=== PATIENT | male | born 1970 | race African-American/Black ===

== ENCOUNTER 2019-12-27 03:08 | Emergency (ER) | payer MEDICAID ==
[~2019-12-27] VITALS: Ht 182.9 cm; Wt 88.5 kg
[2019-12-27 03:15] VITALS: BP 134/78
--- NOTE | 2019-12-27 03:15 | NUR ---
ED Nurse Note: walked in to ed c/o neck stiffness/pain onset 2-3 wks that gets worse with movement. denies any trauma or injury. pt states he woke up one day with neck pain. vss, nad, aaox4, ambulatory, ermd at bedside
--- NOTE | 2019-12-27 03:20 | NUR ---
ED Nurse Note: blood drawn and sent to lab
[2019-12-27] MEDS ORDERED: cefTRIAXone 1 GM in NS 55 ML IVPB ONE (03:45)
--- NOTE | 2019-12-27 03:55 | Emergency Room Report ---
History of Present Illness General Chief Complaint: Neck Pain Source: Patient Present Illness HPI Patient is a 48-year-old male presents for increased neck pain gradual onset over the past few weeks. Patient had recent noticed lymph node to his right inguinal area. Reports having increased pain to his upper back. Had recently been started on acyclovir after visit to urgent care showed and recent penile l esion noted. 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 Patient History Past Medical History: see triage record Reviewed Nursing Documentation: PMH: Agreed; PSxH: Agreed Nursing Documentation-PMH Past Medical History: No Stated History Review of Systems All Other Systems: negative except mentioned in HPI Physical Exam Vital Signs Date Time Temp Pulse Resp B/P (MAP) Pulse Ox O2 Delivery O2 Flow Rate FiO2 12/27/19 03:14 98.4 92 18 123/77 (92) 99 Room Air Sp02 EP Interpretation: reviewed, normal General Appearance: normal inspection, well appearing, no apparent distress, alert, GCS 15 Head: atraumatic ENT: normal ENT inspection, hearing grossly normal, normal voice Neck: normal inspection, full range of motion, supple, no bony tend Respiratory: normal inspection, lungs clear, normal breath sounds, no respiratory distress, no retraction, no wheezing Cardiovascular #1: regular rate, rhythm, no edema Gastrointestinal: normal inspection, normal bowel sounds, non tender, soft, no guarding, no hernia Genitourinary: no CVA tenderness, other - Circumcised male, no penile ulcers Musculoskeletal: normal inspection, back normal, normal range of motion Neurologic: alert, motor strength/tone normal, beauty specialist III-XII nml as tested, oriented x3, responsive, speech normal, normal inspection Psychiatric: normal inspection, judgement/insight normal, mood/affect normal Medical Decision Making Diagnostic Impression: Primary Impression: LAD (lymphadenopathy), inguinal Additional Impression: Neck pain ER Course Patient presented for neck pain. Differential diagnosis include was not limited to pharyngitis, torticollis, cervical disc herniation, among others. Because of complexity of patient's case laboratory tests and imaging studies were ordered. Patient was noted to have some increased neck stiffness. He had recent increased right-sided inguinal pain and adenopathy. Apparently had increased stiffness to his neck. Patient denies any fever but does report having some mild cough. Patient was advised outpatient coronavirus testing and to self isolate. He was also advised to follow-up with his primary care physician for recheck. CT imaging showed no evidence of acute fracture or malalignment. Degenerative changes were noted. This medical record is generated with [employer] thread spinner software. There may be some thread spinner discrepancies related to use of this software Last Vital Signs Date Time Temp Pulse Resp B/P (MAP) Pulse Ox O2 Delivery O2 Flow Rate FiO2 12/27/19 03:14 98.4 92 18 123/77 (92) 99 Room Air Status: improved Disposition: HOME, SELF-CARE Condition: Stable Scripts Ibuprofen* (MOTRIN*) 600 Mg Tablet 600 MG ORAL Q8H PRN for FOR PAIN, #30 TAB 0 Refills Prov: Olaf Sinclair MD 12/27/19 Doxycycline Hyclate* (VIBRAMYCIN*) 100 Mg Capsule 100 MG ORAL EVERY 12 HOURS, #14 CAP 0 Refills Prov: Olaf Sinclair MD 12/27/19 Referrals: NOT CHOSEN [facility]/,REFERRING (PCP) Olaf Sinclair MD Dec 27, 2019 03:55
[2019-12-27 04:28] LABS: BASOPHILS % (AUTO) 1.3 % (0.0-2.0); EOSINOPHILS % (AUTO) 1.7 % (0.0-3.0); HEMATOCRIT 40.1 % (42.0-52.0); HEMOGLOBIN 12.1 G/DL (14.2-18.0); LYMPHOCYTES % (AUTO) 30.7 % (20.0-45.0); MEAN CORPUSCULAR VOLUME 78 FL (80-99); MONOCYTES % (AUTO) 13.7 % (1.0-10.0); NEUTROPHILS % (AUTO) 52.6 % (45.0-75.0); PLATELET COUNT 315 K/UL (150-450); RED BLOOD COUNT 5.12 M/UL (4.70-6.10); RED CELL DISTRIBUTION WIDTH 12.9 % (11.6-14.8); WHITE BLOOD COUNT 6.4 K/UL (4.8-10.8)
[2019-12-27] MEDS ORDERED: Omnipaque-300 100ml vial INJ ONE (04:30)
[2019-12-27 04:40] LABS: INR 1.1 (0.9-1.1)
[2019-12-27 04:42] LABS: ANION GAP 4 mmol/L (5-15); BLOOD UREA NITROGEN 11 mg/dL (7-18); CALCIUM 9.3 MG/DL (8.5-10.1); CARBON DIOXIDE 31 MMOL/L (21-32); CHLORIDE 100 MMOL/L (98-107); CREATININE 1.4 MG/DL (0.55-1.30); SODIUM 135 MMOL/L (136-145)
[2019-12-27 04:47] LABS: ALANINE AMINOTRANSFERASE 22 U/L (12-78); ALBUMIN 3.7 G/DL (3.4-5.0); ALBUMIN/GLOBULIN RATIO 0.7 (1.0-2.7); ALKALINE PHOSPHATASE 86 U/L (46-116); ASPARTATE AMINO TRANSFERASE 14 U/L (15-37); BILIRUBIN,TOTAL 0.6 MG/DL (0.2-1.0)
[2019-12-27] MEDS ORDERED: Ketorolac 30mg Inj IV ONE (05:30)
[2019-12-27] MEDS ORDERED: VIBRAMYCIN100 MG ORAL (06:00)
[2019-12-27] MEDS ORDERED: IBUPROFEN600 M1 ORAL (06:00)
--- NOTE | 2019-12-27 06:24 | Diagnostic Imaging Report ---
EXAM: CT Neck With Intravenous Contrast CLINICAL HISTORY: PAIN TECHNIQUE: Axial computed tomography images of the neck with intravenous contrast. CTDI is 14.6 mGy and DLP is 433.1 mGy-cm. One or more of the following dose reduction techniques were used: automated exposure control, adjustment of the mA and/or kV according to patient size, use of iterative reconstruction technique. COMPARISON: No relevant prior studies available. FINDINGS: Oropharynx: Unremarkable. No significant tonsillar enlargement. No peritonsillar abscess. Hypopharynx: Unremarkable. Larynx: Unremarkable. Normal epiglottis. Trachea: Unremarkable. Retropharyngeal space: Unremarkable. Submandibular/parotid glands: Unremarkable. Glands are normal in size. Thyroid: Unremarkable. No enlarged or calcified nodules. Bones/joints: Degenerative disc disease most pronounced at C6-7 where it is moderate. No acute fracture. Soft tissues: Unremarkable. Vasculature: No acute findings. Lymph nodes: Unremarkable. No lymphadenopathy. Lung apices: Unremarkable as visualized. IMPRESSION: No acute findings in the neck.
[2019-12-27 06:25] VITALS: BP 133/65
--- NOTE | 2019-12-27 06:25 | NUR ---
ER DISCHARGE NOTE: Patient is cleared to be discharged per ERMD, pt is aox4, on room air, with stable vital signs. pt was given dc and prescription instructions, pt was able to verbalize understanding, pt id band and iv site removed without complications. pt is able to ambulate with steady gait. pt took all belongings.
== END 2019-12-27 06:25 | disposition home or self-care (01) ==
LOC: EMR 03:28
DX: R59.0 Localized enlarged lymph nodes (principal); M54.2 Cervicalgia
CPT/HCPCS: 36415; 70491; 80053; 84484; 85025; 85610; 85730; 96374; J0696; J1885; Q9967; Z7502; 99284

== ENCOUNTER 2020-03-11 00:17 | Emergency (ER) | payer MEDICAID, OTHER ==
[~2020-03-11] VITALS: Ht 180.3 cm; Wt 90.7 kg
[~2020-03-11 00:17] MED LIST: IBUPROFEN600 M1 ORAL; VIBRAMYCIN100 MG ORAL
--- NOTE | 2020-03-11 00:20 | NUR ---
Patient came in the ED with complaints of testicular pain and bloody urine for the past three days.
[2020-03-11 00:38] LABS: BILIRUBIN, URINE NEGATIVE (NEGATIVE); GLUCOSE, URINE (UA) NEGATIVE (NEGATIVE); KETONES,URINE 1+ (NEGATIVE); LEUKOCYTE ESTERASE ,URINE 2+ (NEGATIVE); NITRITE,URINE NEGATIVE (NEGATIVE); PH,URINE 6 (4.5-8.0); PROTEIN,URINE 1+ (NEGATIVE); UROBILINOGEN,URINE 4 MG/DL (0.0-1.0)
[2020-03-11 00:43] VITALS: BP 122/74
--- NOTE | 2020-03-11 00:43 | Emergency Room Report ---
History of Present Illness General Chief Complaint: Male Urogenital Problems Source: Patient Present Illness HPI 49-year-old male here with hematuria and right testicular pain. 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 Patient says that he has not been sexually active over the past several weeks. Says that several weeks ago he went to an STD clinic where he was checked for "all the STDs" and was positive for syphilis. Tested negative at that time for HIV, gonorrhea, chlamydia. Has not been sexually active since that test was performed. Says that over the past week has noticed small amount of hematuria and right testicular pain. No back pain or abdominal pain. No fevers, chills, chest pain, palpitation, shortness of breath, nausea, vomiting, diarrhea, dysuria, penile discharge. Says he has had some moderate urinary frequency during this time as well. 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 Nursing Documentation-[facility] Past Medical History: No Stated History Review of Systems All Other Systems: negative except mentioned in HPI Physical Exam Vital Signs Date Time Temp Pulse Resp B/P (MAP) Pulse Ox O2 Delivery O2 Flow Rate FiO2 03/11/20 00:19 98.8 100 18 122/74 (90) 100 Room Air Sp02 EP Interpretation: reviewed, normal General Appearance: no apparent distress, alert, non-toxic Head: normocephalic, atraumatic Eyes: bilateral eye normal inspection, bilateral eye PERRL ENT: hearing grossly normal, normal pharynx, no angioedema, normal voice Neck: full range of motion, supple/symm/no masses Respiratory: chest non-tender, lungs clear, normal breath sounds, speaking full sentences Cardiovascular #1: regular rate, rhythm, no edema Cardiovascular #2: 2+ carotid (R), 2+ carotid (L), 2+ radial (R), 2+ radial (L), 2+ dorsalis pedis (R), 2+ dorsalis pedis (L) Gastrointestinal: normal bowel sounds, non tender, soft, non-distended, no guarding, no rebound Rectal: deferred Genitourinary: normal inspection, no CVA tenderness, penis normal Musculoskeletal: back normal, normal range of motion, gait/station normal, non-tender Neurologic: alert, motor strength/tone normal, oriented x3, sensory intact, responsive, speech normal Psychiatric: judgement/insight normal, memory normal, mood/affect normal, no suicidal/homicidal ideation Lymphatic: no adenopathy Medical Decision Making Diagnostic Impression: Primary Impression: Orchitis ER Course Laboratory Tests Test 03/11/20 00:30 03/11/20 01:15 Urine Color Yellow Urine Appearance Slightly cloudy Urine pH 6 (4.5-8.0) Urine Specific [place] 1.020 (1.005-1.035) Urine Protein 1+ (NEGATIVE) H Urine Glucose (UA) Negative (NEGATIVE) Urine Ketones 1+ (NEGATIVE) H Urine Blood 5+ (NEGATIVE) H Urine Nitrite Negative (NEGATIVE) Urine Bilirubin Negative (NEGATIVE) Urine Urobilinogen 4 MG/DL (0.0-1.0) H Urine Leukocyte Esterase 2+ (NEGATIVE) H Urine RBC 20-30 /HPF (0 - 0) H Urine WBC 20-30 /HPF (0 - 0) H Urine Squamous Epithelial Cells None /LPF (NONE/OCC) Urine Bacteria Few /HPF (NONE) White Blood Count 6.3 K/UL (4.8-10.8) Red Blood Count 5.98 M/UL (4.70-6.10) Hemoglobin 13.1 G/DL (14.2-18.0) L Hematocrit 44.5 % (42.0-52.0) Mean Corpuscular Volume 74 FL (80-99) L Mean Corpuscular Hemoglobin 21.9 PG (27.0-31.0) L Mean Corpuscular Hemoglobin Concent 29.5 G/DL (32.0-36.0) L Red Cell Distribution Width 13.8 % (11.6-14.8) Platelet Count 247 K/UL (150-450) Mean Platelet Volume 8.2 FL (6.5-10.1) Neutrophils (%) (Auto) 57.4 % (45.0-75.0) Lymphocytes (%) (Auto) 27.0 % (20.0-45.0) Monocytes (%) (Auto) 11.2 % (1.0-10.0) H Eosinophils (%) (Auto) 3.3 % (0.0-3.0) H Basophils (%) (Auto) 1.2 % (0.0-2.0) Sodium Level 136 MMOL/L (136-145) Potassium Level 4.3 MMOL/L (3.5-5.1) Chloride Level 99 MMOL/L (98-107) Carbon Dioxide Level 30 MMOL/L (21-32) Anion Gap 7 mmol/L (5-15) Blood Urea Nitrogen 15 mg/dL (7-18) Creatinine 1.2 MG/DL (0.55-1.30) Estimated Glomerular Filtration Rate > 60 mL/min (>60) Glucose Level 106 MG/DL (74-106) Calcium Level 9.7 MG/DL (8.5-10.1) Total Bilirubin 0.5 MG/DL (0.2-1.0) Aspartate Amino Transferase (AST) 14 U/L (15-37) L Alanine Aminotransferase (ALT) 23 U/L (12-78) Alkaline Phosphatase 84 U/L (46-116) Total Protein 9.4 G/DL (6.4-8.2) H Albumin 4.1 G/DL (3.4-5.0) Globulin 5.3 g/dL Albumin/Globulin Ratio 0.8 (1.0-2.7) L Testicular ultrasound: Left epididymoorchitis 49-year-old male here with testicular pain and hematuria. Urinalysis showed evidence of infection and hematuria. Patient is currently being treated with penicillin for syphilis. Complaining of mainly right-sided testicular pain however ultrasound revealed left epididymal orchitis. Patient was treated with ceftriaxone and will be given prescription for 1 week of doxycycline. Told to return to emergency department or see his physician with any worsening symptoms. Told to refrain from sexual activity until he completes his treatment. He expressed understanding and was discharged. Last Vital Signs Date Time Temp Pulse Resp B/P (MAP) Pulse Ox O2 Delivery O2 Flow Rate FiO2 03/11/20 00:19 98.8 100 18 122/74 (90) 100 Room Air Scripts Doxycycline Monohydrate* (DOXYCYCLINE MONOHYDRATE*) 100 Mg Capsule 100 MG ORAL Q12H, #14 CAP 0 Refills Prov: Alvino Bush M.D. 03/11/20 Referrals: NOT CHOSEN [facility]/,REFERRING (PCP) Alvino Bush M.D. Mar 11, 2020 00:43
[2020-03-11 00:53] LABS: APPEARANCE,URINE SLIGHTLY CLOUDY; COLOR,URINE YELLOW
[2020-03-11 01:21] LABS: BASOPHILS % (AUTO) 1.2 % (0.0-2.0); EOSINOPHILS % (AUTO) 3.3 % (0.0-3.0); HEMATOCRIT 44.5 % (42.0-52.0); HEMOGLOBIN 13.1 G/DL (14.2-18.0); MEAN CORPUSCULAR VOLUME 74 FL (80-99); MONOCYTES % (AUTO) 11.2 % (1.0-10.0); NEUTROPHILS % (AUTO) 57.4 % (45.0-75.0); PLATELET COUNT 247 K/UL (150-450); RED BLOOD COUNT 5.98 M/UL (4.70-6.10); RED CELL DISTRIBUTION WIDTH 13.8 % (11.6-14.8); WHITE BLOOD COUNT 6.3 K/UL (4.8-10.8)
[2020-03-11 01:33] LABS: ANION GAP 7 mmol/L (5-15); BLOOD UREA NITROGEN 15 mg/dL (7-18); CALCIUM 9.7 MG/DL (8.5-10.1); CARBON DIOXIDE 30 MMOL/L (21-32); CHLORIDE 99 MMOL/L (98-107); CREATININE 1.2 MG/DL (0.55-1.30); POTASSIUM 4.3 MMOL/L (3.5-5.1); SODIUM 136 MMOL/L (136-145)
[2020-03-11 01:44] LABS: ALANINE AMINOTRANSFERASE 23 U/L (12-78); ALBUMIN 4.1 G/DL (3.4-5.0); ALBUMIN/GLOBULIN RATIO 0.8 (1.0-2.7); ALKALINE PHOSPHATASE 84 U/L (46-116); ASPARTATE AMINO TRANSFERASE 14 U/L (15-37); BILIRUBIN,TOTAL 0.5 MG/DL (0.2-1.0)
[2020-03-11] MEDS ORDERED: DOXYCYCLINE MO100 MG ORAL (01:54)
[2020-03-11] MEDS ORDERED: cefTRIAXone 500mg Inj IM ONE (02:00)
[2020-03-11] MEDS ORDERED: Lidocaine 1% MPF 10mg/ml 5ml INJ ONE (02:00)
--- NOTE | 2020-03-11 02:01 | Diagnostic Imaging Report ---
EXAM: US Scrotum CLINICAL HISTORY: PAIN TECHNIQUE: Real-time ultrasound of the scrotum with color Doppler and image documentation. COMPARISON: No relevant prior studies available. FINDINGS: Right testicle: No mass. No torsion. Left testicle: No mass. No torsion. Increased vascularity. Epididymides: Hypervascularity to the left epididymis. Epididymal cysts bilaterally. Scrotum: Left more than right hydroceles. IMPRESSION: Left epididymoorchitis. Left more than right hydroceles.
--- NOTE | 2020-03-11 02:05 | NUR ---
ER DISCHARGE NOTE: Patient is cleared to be discharged per ERMD, pt is aox4, on room air, with stable vital signs. pt was given dc and prescription instructions, pt was able to verbalize understanding, pt id band and removed. pt is able to ambulate with steady gait. pt took all belongings.
== END 2020-03-11 02:31 | disposition home or self-care (01) ==
LOC: EMR 00:35
DX: N45.2 Orchitis (principal); A53.9 Syphilis, unspecified
CPT/HCPCS: 36415; 76870; 80053; 81003; 85025; 87086; 96372; J0696; Z7502; 99284